=== PATIENT | female | born 1980 | race Caucasian/White ===

== ENCOUNTER 2021-10-04 18:40 | Emergency (ER) | payer OTHER ==
[2021-10-04 18:50] VITALS: BP 128/61
== END 2021-10-04 21:08 | disposition home or self-care (01) ==
LOC: ED 18:40
DX: S90.31XA Contusion of right foot, initial encounter (principal); W18.09XA Striking against other object with subsequent fall, initial encounter; Y93.01 Activity, walking, marching and hiking; Y92.89 Other specified places as the place of occurrence of the external cause; Y99.9 Unspecified external cause status